=== PATIENT | male | born 1955 | race Caucasian/White ===

== ENCOUNTER 2022-07-17 11:31 | Observation (INO) | payer MEDICARE, MEDICAID, SELFPAY ==
[2022-07-17] VITALS (63 sets, daily range): BP systolic 98–133; BP diastolic 43–105; PULSE 52–100; RESP 12–26; TEMP 36.1–36.8; O2SAT 86–100
--- NOTE | 2022-07-17 11:42 | XR_ITS ---
WS: [id number] Exam: XR chest 1V portable [id number] Date/Time of Exam: 07/17/2022 11:42 AM Reason For Exam: dyspnea/cough Comparison 10/16/2016. The lungs are clear and fully expanded. Unremarkable cardiomediastinal silhouette for technique. No p leural effusions. Bony structures are intact. Extensive fusion hardware partially visualized in the l ower cervical spine. 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 XR/XR chest 1V portable [id number] IMPRESSION: 1. No acute cardiopulmonary finding.
--- NOTE | 2022-07-17 11:43 | ED_ITS ---
HPI - General Adult General: Chief complaint: Altered Mental Status Stated complaint: AMS Time Seen by Provider: 07/17/22 11:33 Source: patient Mode of arrival: EMS Limitations: altered mental status History of Present Illness: 66-year-old male with a known history of liver cirrhosis comes in with altered mental status. He is taking oxycodone every 4 hours as needed's been difficult to arouse very sedate. He appears mildly jaundice. He is nonresponsive. Onset (ago): day(s) Relieving factors: none Exacerbating factors: none Associated symptoms: Reports confusion Treatments prior to arrival: none Review of Systems General: Reports: ROS unobtainable due to mental status Neuro: Reports: confusion PFSH ED PFSH: Medical History Alcoholic cirrhosis Alcoholism Carotid artery disease carotid ultrasound in 2017 with 50-79% stenosis on left, 16-49% on right Chronic narcotic use Degenerative disk disease GERD (gastroesophageal reflux disease) History of echocardiogram 2017 normal EF, mild left ventricular hypertrophy History of Holter monitoring 2017 sinus rhythm, no correlation of symptoms with arrhythmias History of stress test 2017 Myocardial perfusion imaging revealed reversible perfusion defect of mid to distal anterior and anteroseptal mccormack suggestive of ischemia in LAD territory. The paradoxical perfusion defect of entire inferior wall improves on prone stress images likely represents attenuation artifact. No lexiscan induced EKG changes. Hypertension Hypothyroidism Intention tremor Macrocytic anemia Surgical History History of cataract surgery (~2017) History of cervical spinal surgery 2012 anterior cervical discectomy with fusion 2014 posterior cervical foraminotomy, posterior arthrodesis, and decompression laminectomy History of colonoscopy 2017 History of esophagogastroduodenoscopy (EGD) 2017 gastritis History of lumpectomy right breast, benign Family History Father CAD (coronary artery disease) Sister Hypertension Mother Colon cancer Sister Hypertension Social History Smoking and tobacco status: heavy tobacco smoker cigarettes Alcohol intake: current Alcohol intake frequency: 3 or more drinks per day Alcohol type: beer and hard liquor Substance/Drug Use: former Physical Exam HENMT: COMMON NORMALS: normocephalic, atraumatic and hearing grossly normal bilaterally HEAD & SCALP: normocephalic and atraumatic Resp: COMMON NORMALS: normal respiratory effort, No retractions, No use of accessory muscles and clear to auscultation bilaterally AUSCULTATION: clear to auscultation bilaterally Cardio: COMMON NORMALS: regular rate, regular rhythm and No murmurs present (Cardio) RATE: regular rate RHYTHM: regular rhythm GI: COMMON NORMALS: Soft to palpation and No hepatosplenomegaly present AUSCULTATION: Yes normoactive bowel sounds PALPATION: Yes Soft to palpation, No Tenderness to palpation present (GI), No Guarding due to palpation present (GI) and Yes No hepatosplenomegaly present Extremity: COMMON NORMALS: normal to inspection, capillary refill normal, no clubbing, cyanosis or edema, no calf tenderness and no pedal edema Neuro: CARA COMA SCALE: document GCS findings Cara coma scale eye opening: None Cara coma scale verbal response: Sounds Jackson coma scale motor response: Localising Jackson coma scale total score: 8 Skin: COMMON NORMALS: no rashes or lesions noted GENERAL SKIN EXAM: no rashes or lesions noted Course Vital Signs: Vital signs: Vital Signs Temperature 98.3 F 07/19/22 03:44 Pulse Rate 65 07/19/22 03:44 Respiratory Rate 18 07/19/22 03:44 Blood Pressure 103/69 07/19/22 03:44 Pulse Oximetry 96 07/19/22 00:00 Oxygen Delivery Me thod 07/19/22 03:44 Oxygen Flow Rate 2 07/19/22 03:44 [facility] - General Adult Medical Decision Making Patient presents to the emergency room with severe altered mental status difficult to arouse he was given Narcan after work-up was completed. The entire time he was here he maintain his oxygen sat good with good respiratory effort with Narcan he did wake up some. His urine tox screen also showed benzodiazepines although family member arrived later and said they last given 1 yesterday they did think he had taken a large amount of narcotics recently. He has a long history of alcohol use and has been trying to taper off which is why they have been prescribed the benzo diazepam's. His alcohol level is negative. I think he does have sedation due to his chronic narcotics use additionally think he is likely to experience withdrawal. He has a history of liver failure. Although his ammonia and other labs are not significantly abnormal at this time. Discussed with hospitalist orders written admit to ICU. Medical Records I reviewed the patient's medical records. Lab Data I reviewed the patient's lab results. 07/19/22 05:26 07/19/22 05:26 Radiology Impressions Chest X-Ray 07/17/22 11:42 IMPRESSION: 1. No acute cardiopulmonary finding. Head CT 07/17/22 12:10 IMPRESSION: 1. No evidence of intracranial hemorrhage or mass effect. 2. Mild small vessel changes. Moderate parenchymal volume loss. 3. RIGHT maxillary sinusitis. 4. No acute intracranial findings. Laboratory Results WBC 3.3 10^3/uL (4.0-10.0) L 07/17/22 11:57 RBC 2.77 10^6/uL (4.1-5.3) L 07/17/22 11:57 Hgb 10.0 g/dL (11.7-16.6) L 07/17/22 11:57 Hct 29.8 % (42.0-52.0) L 07/17/22 11:57 MCV 107.6 fl (80-94) H 07/17/22 11:57 MCH 36.1 pg (28.0-34.0) H 07/17/22 11:57 MCHC 33.6 g/dL (30.0-36.0) 07/17/22 11:57 RDW 13.6 % (12.1-15.1) 07/17/22 11:57 Plt Count 104 10^3/cmm (130-400) L 07/17/22 11:57 MPV 12.1 fL (7.4-10.4) H 07/17/22 11:57 Neut % (Auto) 69.4 % 07/17/22 11:57 Lymph % (Auto) 17.1 % 07/17/22 11:57 Morris % (Auto) 12.3 % 07/17/22 11:57 Eos % (Auto) 0.6 % 07/17/22 11:57 Baso % (Auto) 0.3 % 07/17/22 11:57 Neut # (Auto) 2.31 10^3/uL (1.8-7.7) 07/17/22 11:57 Lymph # (Auto) 0.6 10^3/uL (0.8-4.8) L 07/17/22 11:57 Morris # (Auto) 0.4 10^3/uL (0.2-0.9) 07/17/22 11:57 Eos # (Auto) 0.0 10^3/uL (0.0-0.8) 07/17/22 11:57 Baso # (Auto) 0.0 10^3/uL (0.0-0.1) 07/17/22 11:57 Nucleated RBC % (auto) 0 % 07/17/22 11:57 Nucleated RBCs # 0.0 /100WBC 07/17/22 11:57 PT 20.10 SECONDS (12.1-14.9) H 07/17/22 11:57 INR 1.67 (0.8-1.2) H 07/17/22 11:57 APTT 36.7 SECONDS (23.9-36.7) 07/17/22 11:57 Specimen Type Arterial 07/17/22 12:06 Sample Site Brachial, right 07/17/22 12:06 ABG pH 7.43 (7.35-7.45) 07/17/22 12:06 ABG pCO2 37.3 mmHg (35-45) 07/17/22 12:06 ABG pO2 91.0 mmHg (80.0-100.0) 07/17/22 12:06 ABG HCO3 24.8 mmol/L (22-26) 07/17/22 12:06 ABG O2 Saturation 98.1 07/17/22 12:06 ABG Base Excess 0.5 mmol/L (-2.0-2.0) 07/17/22 12:06 Vinicio Test Pos 07/17/22 12:06 A-a O2 Gradient 1.7 mmHg (5-10) L 07/17/22 12:06 Hematocrit 29.4 % (42-52) L 07/17/22 12:06 Hgb O2 Saturation 96.4 % (95-100) 07/17/22 12:06 Carboxyhemoglobin 1.6 %THgb (0.4-20.1) 07/17/22 12:06 Methemoglobin 0.2 % (0.4-1.5) L 07/17/22 12:06 Total Hemoglobin 9.6 g/dL (14-18) L 07/17/22 12:06 Sodium 138.0 mmol/L (131-143) 07/17/22 12:06 Potassium 3.4 mmol/L (3.5-5.0) L 07/17/22 12:06 Glucose 100.0 mg/dL (70-115) 07/17/22 12:06 Ionized Calcium 1.2 mmol/L (1.1-1.4) 07/17/22 12:06 O2 Delivery Device None 07/17/22 12:06 FiO2 21.0 % 07/17/22 12:06 Cornetist ID yorna 07/17/22 12:06 Sodium 140 mmol/L (136-145) 07/17/22 11:57 Potassium 3.9 mmol/L (3.5-5.1) 07/17/22 11:57 Chloride 104 mmol/L (98-107) 07/17/22 11:57 Carbon Dioxide 27 mmol/L (22-29) 07/17/22 11:57 Anion Gap 12.9 (5-19) 07/17/22 11:57 BUN 18 mg/dL (8-23) 07/17/22 11:57 Creatinine 0.6 mg/dL (0.7-1.2) L 07/17/22 11:57 GFR Calculation 134.8 mL/min (90-130) H 07/17/22 11:57 Glucose 106 mg/dL (65-115) 07/17/22 11:57 Calculated Osmolality 292 mOsm/kg (285-295) 07/17/22 11:57 Lactic Acid 1.6 mmol/L (0.5-2.2) 07/17/22 11:57 Calcium 9.0 mg/dL (8.5-10.5) 07/17/22 11:57 Total Bilirubin 1.9 mg/dL (0.15-1.2) H 07/17/22 11:57 AST 82 U/L (0-40) H 07/17/22 11:57 ALT 28 U/L (0-41) 07/17/22 11:57 Alkaline Phosphatase 89 U/L (40-130) 07/17/22 11:57 Ammonia 46 umol/L (16-60) 07/17/22 12:20 Creatine Kinase 428 U/L (39-308) H* 07/17/22 11:57 Total Protein 6.6 g/dL (6.6-8.7) 07/17/22 11:57 Albumin 2.6 g/dL (3.5-5.2) L 07/17/22 11:57 Globulin 4.0 g/dL (1.3-4.6) 07/17/22 11:57 Lipase 10 U/L (13-60) L 07/17/22 11:57 Vitamin B12 > 2000 pg/mL (232-1245) H 07/17/22 11:57 Folate 12.2 ng/mL (4.5-32.2) 07/17/22 11:57 Urine Color Dark yellow (Yellow) 07/17/22 13:19 Urine Appearance Cloudy (CLEAR) A 07/17/22 13:19 Urine pH 5 (5-7) 07/17/22 13:19 Ur Specific Saffell 1.020 (1.005-1.030) 07/17/22 13:19 Urine Protein 1+ (Negative) H 07/17/22 13:19 Urine Glucose (UA) Norm (Normal) 07/17/22 13:19 Urine Ketones 1+ (Negative) H 07/17/22 13:19 Urine Blood Neg (Negative) 07/17/22 13:19 Urine Nitrate Negative (Negative) 07/17/22 13:19 Urine Bilirubin 2+ (Negative) H 07/17/22 13:19 Urine Urobilinogen 4+ mg/dL (Negative) H 07/17/22 13:19 Ur Leukocyte Esterase 1+ (Negative) H 07/17/22 13:19 Urine RBC 5-10 /hpf (0-2) H 07/17/22 13:19 Urine WBC 5-10 /hpf (0-5) H 07/17/22 13:19 Ur Squamous Epith Cells 0-4 /hpf (0-5) H 07/17/22 13:19 Amorphous Sediment 1+ /hpf 07/17/22 13:19 Urine Bacteria 4+ /hpf (NONE) H 07/17/22 13:19 Urine Opiates Screen Negative ng/mL (Negative) 07/17/22 13:19 Ur Barbiturates Screen Negative ng/mL (Negative) 07/17/22 13:19 Ur Phencyclidine Scrn Negative ng/mL (Negative) 07/17/22 13:19 Ur Amphetamines Screen Negative ng/mL (Negative) 07/17/22 13:19 U Benzodiazepines Scrn Positive ng/mL (Negative) H 07/17/22 13:19 Urine Cocaine Screen Negative ng/mL (Negative) 07/17/22 13:19 U Marijuana (THC) Screen Negative ng/mL (Negative) 07/17/22 13:19 Ethyl Alcohol < 10 mg/dL (0-10) 07/17/22 11:57 Discharge Plan Discharge Patient Disposition: Admitted As Inpatient Admit Provider: Angie Vasquez Clinical Impression: Acute encephalopathy, Chronic narcotic use, Alcoholism, Macrocytic anemia, Recurrent falls, Alcoholic cirrhosis Condition: Stable Coding Level of Care Code ED Infection Prevention Practitioner for Chg Fwd Exam Detailed
--- NOTE | 2022-07-17 11:43 | W.ED.AMS ---
HPI - Altered Mental Status General: Chief Complaint: Altered Mental Status Stated Complaint: AMS Time Seen by Provider: 07/17/22 11:33 Course Vital Signs: Vital signs: Vital Signs Temperature 98.2 F 07/17/22 11:32 Pulse Rate 62 07/17/22 11:32 Respiratory Rate 16 07/17/22 11:32 Blood Pressure 120/71 07/17/22 11:32 Pulse Oximetry 100 07/17/22 11:32 Oxygen Delivery Me thod 07/17/22 11:32 Discharge Plan Discharge Condition: Stable Referrals: Maggie Jacobson DO [Primary Care Provider] - Coding Level of Care Code ED Crusher Machine Operator for Sterling Kenny
[2022-07-17 12:07] LABS: Basophils % 0.3 %; Eosinophils % 0.6 %; Hematocrit 29.8 % (42.0-52.0); Lymphocytes # 0.6 10^3/uL (0.8-4.8); Lymphocytes % 17.1 %; Mean Corpuscular HGB Conc 33.6 g/dL (30.0-36.0); Mean Corpuscular Hemoglobin 36.1 pg (28.0-34.0); Mean Corpuscular Volume 107.6 fl (80-94); Mean Platelet Volume 12.1 fL (7.4-10.4); Monocytes # 0.4 10^3/uL (0.2-0.9); Monocytes % 12.3 %; Neutrophils # 2.31 10^3/uL (1.8-7.7); Neutrophils % 69.4 %; Nucleated Red Blood Cells % 0 %; Platelet Count 104 10^3/cmm (130-400); Red Blood Count 2.77 10^6/uL (4.1-5.3); Red Cell Distribution Width 13.6 % (12.1-15.1); White Blood Count 3.3 10^3/uL (4.0-10.0)
--- NOTE | 2022-07-17 12:10 | CT_ITS ---
WS: [id number] CT HEAD TECHNIQUE: Noncontrast CT of the head obtained from the skullbase to the vertex. CLINICAL INFORMATION: AMS COMPARISON: None. DLP: 1280.[address] scans at [facility] use at least one of these dose optimization techniques: automated e xposure control; mA and/or kV adjustment per patient size (includes targeted exams where dose is matc hed to clinical indication); or iterative reconstruction. FINDINGS: No evidence of intracranial hemorrhage or mass effect. Ventricular system and basal cisterns are ken nt. Mild small vessel changes with moderate parenchymal volume loss. No extra-axial fluid collections . No evidence of mass or mass effect. Partial opacification LEFT mastoid tip. Fluid within the RIGHT maxillary sinus consistent with sinusi tis. RIGHT mastoid air cells well aerated. Normal posterior nasopharynx. CT/CT head wo con* [id number] IMPRESSION: 1. No evidence of intracranial hemorrhage or mass effect. 2. Mild small vessel changes. Moderate parenchymal volume loss. 3. RIGHT maxillary sinusitis. 4. No acute intracranial findings.
[2022-07-17 12:18] LABS: ABG PCO2 37.3 mmHg (35-45); ABG PH Result 7.43 (7.35-7.45); Alveolar-Arterial Oxygen Gradi 1.7 mmHg (5-10); Arterial Blood Gas Hematocrit 29.4 % (42-52); Base Excess ABG 0.5 mmol/L (-2.0-2.0); Blood Gas Allen Test Pos; Blood Gas Sample Site Brachial, right; Blood Gas Sample Type Arterial; Carboxyhemoglobin 1.6 %THgb (0.4-20.1); HCO3 ABG 24.8 mmol/L (22-26); HGB O2 Sat 96.4 % (95-100); Ionized Calcium Level - ABG 1.2 mmol/L (1.1-1.4); Methemoglobin 0.2 % (0.4-1.5); Oxygen Saturation ABG 98.1; Potassium Level - ABG 3.4 mmol/L (3.5-5.0); Total Hemoglobin 9.6 g/dL (14-18)
[2022-07-17 12:18] LABS: INR 1.67 (0.8-1.2)
[2022-07-17 12:19] LABS: Partial Thromboplastin Time 36.7 SECONDS (23.9-36.7)
[2022-07-17 12:25] LABS: Lactic Sepsis W/Reflex 1.6 mmol/L (0.5-2.2)
[2022-07-17 12:33] LABS: Alanine Aminotransferase 28 U/L (0-41); Albumin Level 2.6 g/dL (3.5-5.2); Alkaline Phosphatase 89 U/L (40-130); Anion Gap 12.9 (5-19); Aspartate Amino Transferase 82 U/L (0-40); Blood Urea Nitrogen 18 mg/dL (8-23); Carbon Dioxide 27 mmol/L (22-29); Chloride 104 mmol/L (98-107); Glomerular Filtration Rate 134.8 mL/min (90-130); Glucose 106 mg/dL (65-115); Lipase 10 U/L (13-60); Osmolality Calculated 292 mOsm/kg (285-295); Potassium 3.9 mmol/L (3.5-5.1); Sodium 140 mmol/L (136-145); Total Bilirubin 1.9 mg/dL (0.15-1.2); Total Protein 6.6 g/dL (6.6-8.7)
[2022-07-17 12:35] LABS: Creatine Phosphokinase 428 U/L (39-308)
[2022-07-17 12:55] LABS: Ammonia 46 umol/L (16-60)
--- NOTE | 2022-07-17 13:35 | PC.PHAR ---
pt unable to verify medications due to ams-medications entered are meds the pharmacy has filled recently and med bottles the pt brought in-rx filled 07/02/22 90d/s for duloxetine 60mg take 2 caps daily-pt also had empty bottle of 30mg daily filled 03/27/22 90d/s-rx filled 04/09/22 90d/s for levothyroxine 150mcg daily pt also had rx bottle dated 06/20/2020 for 137mcg daily-rx filled 05/28/22 90d/s topiramate 50mg bid pt also had a rx bottle dated 05/02/21 25mg bid-notes are made in the pharmacy comments
[2022-07-17 13:37] LABS: Bilirubin Urine 2+ (Negative); Blood Urine Neg (Negative); Glucose Urine UA Norm (Normal); Ketones Urine 1+ (Negative); Nitrate Urine Negative (Negative); Protein Urine 1+ (Negative); Urine Appearance Cloudy (CLEAR); Urine Color Dark Yellow (Yellow); pH Urine 5 (5-7)
[2022-07-17 13:38] LABS: Add Urine Microscopic? YES; Leukocyte Esterase Urine 1+ (Negative); Urobilinogen Urine 4+ mg/dL (Negative)
[2022-07-17 13:44] LABS: Squamous Epithelial Cell Urine 0-4 /hpf (0-5)
[2022-07-17 13:45] LABS: Add Urine Culture? Yes; Amorphous Sediment Urine 1+ /hpf; Bacteria Urine 4+ /hpf
[2022-07-17 13:56] LABS: Amphetamines Screen Urine Negative (Negative); Barbiturates Screen Urine Negative (Negative); Benzodiazepines Screen Urine Positive (Negative); Cocaine Screen Urine Negative (Negative); Opiate Screen Urine Negative (Negative); PCP Screen Urine Negative (Negative); THC Screen Urine Negative (Negative)
--- NOTE | 2022-07-17 14:05 | PC.NURSE ---
PT ABLE TO VERBALIZE NAME AFTER SECOND DOSE OF NALOXONE.
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
[2022-07-17 14:45] LABS: Alcohol Level < 10 mg/dL (0-10)
[2022-07-17] MEDS: cefTRIAXone 1,000 MG in sodium chloride 0.9% (plus) 50 ML 100 MG IV (14:49)
[2022-07-17] MEDS: sodium chloride 0.9% 1,000 ML 999 ML IV ×2 (14:50→16:08)
[2022-07-17] MEDS: sodium chloride 0.9% 1,000 ML 150 ML IV (16:15)
--- NOTE | 2022-07-17 17:02 | ECG_ITS ---
[facility] Test Date: 2022-07-17 Pat Name: Mike Wilkerson Department: Room: [facility] Gender: Male [place]: : 1955 Requested By: Angie Vasquez Order Number: [id number] Reading MD: Virgilio Munoz Measurements Intervals [place] Rate: 72 P: 75 FL: 183 QRS: 43 QRSD: 82 T: 90 QT: 389 QTc: 426 Interpretive Statements SINUS RHYTHM NONSPECIFIC T-WAVE ABNORMALITY Compared to ECG 08/15/2017 17:42:09 T-wave abnormality now present Electronically Signed On 07-17-2022 18:07:45 WASHER ENGINEER by Virgilio Munoz [email or web address]
--- NOTE | 2022-07-17 17:42 | USCV_ITS ---
Mike Wilkerson Age: 66 Gender: M : 1955 Exam Date: 07/17/2022 18:14 Ordering Phys: Angie Vasquez MD Technologist: SHI [place] [facility] [place]ication: LLE edema. Patient is unresponsive in ICU-5 HISTORY: LLE edema. Patient is unresponsive in ICU-5 PROCEDURES: Venous duplex imaging was performed in only the left lower extremity. The following venous structures were evaluated: common femoral vein, profunda vein, proximal portion of the greater saphenous vein, superficial femoral vein, and the popliteal vein. In addition, the posterior tibial veins were evaluated. FINDINGS: Normal 2-D Doppler and augmentation and compressibility throughout the lower extremity venous structures. Additional imaging through the proximal calf veins also reveals no thrombus. Limited evaluation of the greater saphenous vein is patent with no thrombus.. CONCLUSIONS No DVT left lower extremity. Dr. Sonali Whiting DO (Electronically Signed) Final Date: 18 July 2022 07:47 S
[2022-07-17] MEDS: magnesium sulfate premix 2 GM/50 ML PIGGYBACK IV (17:44)
[2022-07-17] MEDS: folic acid 1 MG, multivitamin inj 10 ML, thiamine 100 MG in sodium chloride 0.9% 1,000 ML 250 MG IV (17:53)
[2022-07-17] MEDS: pantoprazole 40 mg SDV IVP (18:40)
[2022-07-17] MEDS: heparin 5,000 unit/mL INJ 1 mL 5000 UNIT SUBCUT (18:42)
[2022-07-17 18:55] LABS: Folate Level 12.2 ng/mL (4.5-32.2)
[2022-07-17 19:15] LABS: Vitamin B12 > 2000 pg/mL (232-1245)
--- NOTE | 2022-07-17 21:15 | PC.NURSE ---
Bladder scan done at 1930 with result of 375 and then 879. I and O catheterization done as ordered with 400 dark sudha urine out. Patient tolerated procedure well.
[2022-07-17 21:51] LABS: Glucose Point of Care 86 mg/dL (70-110)
[2022-07-17] MEDS: sodium chlor 0.9% + KCl 20 mEq 20 MEQ/1,000 ML BAG 75 MEQ IV (22:11)
[2022-07-18] VITALS (129 sets, daily range): BP systolic 90–151; BP diastolic 58–108; PULSE 71–787; RESP 13–32; TEMP 36.7–38; O2SAT 73–100
[2022-07-18 05:49] LABS: Basophils % 0.2 %; Eosinophils % 0.2 %; Hematocrit 27.3 % (42.0-52.0); Hemoglobin 9.2 g/dL (11.7-16.6); Lymphocytes # 0.7 10^3/uL (0.8-4.8); Lymphocytes % 11.4 %; Mean Corpuscular HGB Conc 33.7 g/dL (30.0-36.0); Mean Corpuscular Hemoglobin 35.9 pg (28.0-34.0); Mean Corpuscular Volume 106.6 fl (80-94); Mean Platelet Volume 12.2 fL (7.4-10.4); Monocytes # 0.5 10^3/uL (0.2-0.9); Monocytes % 8.8 %; Neutrophils # 4.87 10^3/uL (1.8-7.7); Neutrophils % 79.1 %; Nucleated Red Blood Cells % 0 %; Platelet Count 125 10^3/cmm (130-400); Red Blood Count 2.56 10^6/uL (4.1-5.3); Red Cell Distribution Width 13.7 % (12.1-15.1); White Blood Count 6.2 10^3/uL (4.0-10.0)
[2022-07-18 05:57] LABS: INR 1.76 (0.8-1.2)
[2022-07-18] MEDS: heparin 5,000 unit/mL INJ 1 mL 5000 UNIT SUBCUT ×2 (06:02→17:36)
[2022-07-18 06:11] LABS: Ammonia 60 umol/L (16-60)
[2022-07-18 06:51] LABS: Alanine Aminotransferase 27 U/L (0-41); Albumin Level 2.3 g/dL (3.5-5.2); Alkaline Phosphatase 78 U/L (40-130); Aspartate Amino Transferase 86 U/L (0-40); Blood Urea Nitrogen 17 mg/dL (8-23); Calcium 8.2 mg/dL (8.5-10.5); Carbon Dioxide 22 mmol/L (22-29); Chloride 107 mmol/L (98-107); Creatine Phosphokinase 305 U/L (39-308); Globulin 3.4 g/dL (1.3-4.6); Glomerular Filtration Rate 134.8 mL/min (90-130); Glucose 73 mg/dL (65-115); Iron 45 ug/dL (59-158); Magnesium 1.6 mg/dL (1.7-2.3); Osmolality Calculated 288 mOsm/kg (285-295); Percent Saturation 64.2 % (20-50); Phosphorus 3.3 mg/dL (2.5-4.5); Sodium 139 mmol/L (136-145); Thyroid Stimulating Hormone 2.75 uIU/mL (0.27-4.20); Total Bilirubin 1.6 mg/dL (0.15-1.2); Total Iron Binding Capacity 70 mcg/dl; Total Protein 5.7 g/dL (6.6-8.7); Unsaturated Iron Binding 25 ug/dL (112-347)
[2022-07-18 06:53] LABS: Glucose Point of Care 88 mg/dL (70-110)
[2022-07-18 08:55] LABS: Glucose Point of Care 72 mg/dL (70-110)
[2022-07-18] MEDS: acetaminophen 500 mg Tablet PO (09:25)
[2022-07-18] MEDS: folic acid 1 mg Tablet PO (09:25)
[2022-07-18] MEDS: multivitamin therapeutic Tablet 1 TAB PO (09:25)
[2022-07-18] MEDS: thiamine 100 mg Tablet PO (09:25)
[2022-07-18] MEDS: pantoprazole 40 mg SDV IVP (09:25)
[2022-07-18] MEDS: sodium chloride 0.9% 1,000 ML 75 ML IV (10:40)
--- NOTE | 2022-07-18 11:34 | PC.CHAP ---
Pastoral Care Encounter/Spiritual Assessment Type of Contact [] Declined lead developer visit [] Patient/Family/Request visit [] Outpatient visit [] Follow-up visit [] Physician referral [] Code/Alert [x] Routine visit [] Staff referral [] Actively dying [x] Patient sleeping [] Family support [] [] Out of room [] Palliative care [] [] Receiving care in room [] Pre-surgical visit [] Trauma [] Long length of stay [x] ICU visit [] Other: Relational/Emotional Strength [] Patient feels connected with others/family/visitors/staff [] Distress [] Loneliness/isolation [] Abandonment Spirituality of Patient [] Person of Carlene [] Attends Sabianist of their Carlene [] Believes in Prayer [] Reads Bible or Bahai materials [] There are Spiritual issues to be addressed Nurse Case Management Interventions [x] Prayer [] Active listening [] Non-anxious presence [] Spiritual/emotional support [] Crisis/trauma care [] Spiritual counseling [] Bereavement support [] Provided bereavement packet [] Provided Bible/devotional materials [] Provided toy/stuffed animal, coloring book to patient or family member [] Provided Communion [] Anointing/[place] [] Salvation [x] Completed spiritual assessment [] Other: Impact on Illness or Injury [] Angry [] Fearful [] Anxious [] Often cries [] Exhaustion [] Unable to work [] Unable to attend orthodox [] Unable to walk/stand [] Unable to read [] Unable to drive [] Unable to eat/drink [] Unable to sleep [] Unable to be with family [] Patient intubated [] Other: Summary Time spent with patient
[2022-07-18 12:20] LABS: Glucose Point of Care 86 mg/dL (70-110)
--- NOTE | 2022-07-18 12:39 | PM.PN ---
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 Patient is noncompliant no active complaints He was examined in front of ICU nurse Vitals/I&O/Wt Last Vital Signs Temp 98.9 F 07/18/22 12:35 Pulse 79 07/18/22 12:35 Resp 18 07/18/22 12:35 BP 113/78 07/18/22 12:35 Pulse Ox 98 07/18/22 12:35 O2 Del Method 07/18/22 12:35 O2 Flow Rate 2 07/18/22 05:59 07/17/22 07/18/22 07/18/22 22:59 06:59 14:59 Intake Total 4111.2 / 4111.2 936.25 / 936.25 Output Total 400 / 400 125 / 525 Balance 3711.2 / 3711.2 -125 / 3586.2 936.25 / 936.25 Weight last 48 hrs Weight 73.482 kg Physical Exam Narrative: Patient is tremulous Able to follow commands Asymmetrical pupil Looks dehydrated Malnourished Multiple petechiae bruises all over his extremities Stage II ulcer right greater trochanteric area Right elbow blister has ruptured S1, S2 I do not see any focal deficits Concentrated urine in the bag Data : 07/18/22 04:45 07/18/22 04:38 Micro: Microbiology 07/17/22 12:22 Blood Culture - Preliminary Blood NEGATIVE TO DATE 07/17/22 12:20 Blood Culture - Preliminary Blood NEGATIVE TO DATE 07/17/22 13:19 Urine Culture - Preliminary Urine,Clean Catch Strep species, gamma-hemolytic A&P Assessment and plan (1) Alcoholism: (2) Degenerative disk disease: (3) Chronic narcotic use: (4) GERD (gastroesophageal reflux disease): (5) Alcoholic cirrhosis: Qualifiers: Ascites presence: with ascites Qualified Code(s): K70.31 - Alcoholic cirrhosis of liver with ascites (6) Macrocytic anemia: (7) Acute encephalopathy: (8) Alcohol withdrawal: Qualifiers: Complication of substance-induced condition: with delirium Qualified Code(s): F10.931 - Alcohol use, unspecified with withdrawal delirium (9) Wernicke-Korsakoff syndrome (alcoholic): (10) Recurrent falls: Plan Rhabdomyolysis: Continue IV fluids Patient is dehydrated and malnourished Alcohol-related ketosis Continue thiamine, IV fluids Warnicke Korsakoff: Patient is denying events that are listed in H&P however has multiple bruises and petechiae all over his extremities He is agreeing to the fact of going to a correction for now 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
[2022-07-18] MEDS: cefTRIAXone 1,000 MG in sodium chloride 0.9% (plus) 50 ML 100 MG IV (13:42)
[2022-07-18 16:54] LABS: Glucose Point of Care 110 mg/dL (70-110)
--- NOTE | 2022-07-18 19:24 | PC.NURSE ---
PT HAS HAD AN UNEVENTFUL SHIFT. PT HAS BECOME MORE A/O THROUGHOUT MY SHIFT. PT HAS TOLERATED FOOD WELL FOR THIS NURSE AND IS TAKING HIS PILLS WHOLE. HE IS ABLE TO ANSWER HIS NAME, , AND WHERE HE IS AT. PTS SISTER'S HAVE BEEN AT BEDSIDE MOST OF THE DAY. THEY ARE VERY PLEASANT. DR MARIO TO CALL AND SPEAK WITH FAMILY. REPORT WAS GIVEN TO ICU NURSE WELL MED SURG NURSE. ALL QUESTIONS ANSWERED. CARE BEING TURNED OVER TO ROSEY COLEY.
[2022-07-18] MEDS: tizanidine 4 mg Tablet 8 MG PO (20:58)
[2022-07-18] MEDS: gabapentin 300 mg Capsule 600 MG PO (20:58)
[2022-07-18 21:13] LABS: Glucose Point of Care 113 mg/dL (70-110)
[2022-07-19] VITALS (8 sets, daily range): BP systolic 101–123; BP diastolic 51–72; PULSE 49–78; RESP 13–18; TEMP 36.3–37.8; O2SAT 95–98
[2022-07-19] MEDS: sodium chloride 0.9% 1,000 ML 75 ML IV ×2 (00:26→03:53)
[2022-07-19] MEDS: heparin 5,000 unit/mL INJ 1 mL 5000 UNIT SUBCUT ×2 (05:20→19:27)
[2022-07-19 05:47] LABS: Basophils % 0.1 %; Eosinophils % 0.1 %; Hematocrit 24.9 % (42.0-52.0); Hemoglobin 8.2 g/dL (11.7-16.6); Lymphocytes # 0.8 10^3/uL (0.8-4.8); Lymphocytes % 11.3 %; Mean Corpuscular HGB Conc 32.9 g/dL (30.0-36.0); Mean Corpuscular Hemoglobin 35.8 pg (28.0-34.0); Mean Corpuscular Volume 108.7 fl (80-94); Mean Platelet Volume 11.8 fL (7.4-10.4); Monocytes # 0.4 10^3/uL (0.2-0.9); Monocytes % 5.9 %; Neutrophils # 5.53 10^3/uL (1.8-7.7); Neutrophils % 82.2 %; Nucleated Red Blood Cells % 0 %; Platelet Count 98 10^3/cmm (130-400); Red Blood Count 2.29 10^6/uL (4.1-5.3); Red Cell Distribution Width 14.5 % (12.1-15.1); White Blood Count 6.7 10^3/uL (4.0-10.0)
[2022-07-19 05:52] LABS: Anion Gap 11.7 (5-19); Blood Urea Nitrogen 16 mg/dL (8-23); Calcium 8.2 mg/dL (8.5-10.5); Carbon Dioxide 23 mmol/L (22-29); Chloride 110 mmol/L (98-107); Glomerular Filtration Rate 134.8 mL/min (90-130); Glucose 113 mg/dL (65-115); Osmolality Calculated 294 mOsm/kg (285-295); Potassium 3.7 mmol/L (3.5-5.1); Sodium 141 mmol/L (136-145)
[2022-07-19 06:55] LABS: Glucose Point of Care 110 mg/dL (70-110)
--- NOTE | 2022-07-19 10:44 | P.PN_ITS ---
Subjective Subjective: Patient is awake and alert Agreeable to go to rehab for a while Did discuss with the patient and his family that in case he gets worse option is to go with palliative versus hospice care Patient is motivated to work with physical therapy at the [place] [facility] and get better Family is in agreement Vitals/I&O/Wt Last Vital Signs Temp 98.3 F 07/19/22 03:44 Pulse 78 07/19/22 08:00 Resp 15 07/19/22 08:00 BP 109/72 07/19/22 08:00 Pulse Ox 98 07/19/22 08:00 O2 Del Method 07/19/22 08:00 O2 Flow Rate 2 07/19/22 03:44 07/18/22 07/19/22 07/19/22 22:59 06:59 14:59 Intake Total 360 / 1466.25 1258.75 / 2725.00 Output Total 200 / 200 175 / 375 Balance 160 / 1266.25 1083.75 / 2350.00 Weight last 48 hrs Weight 73.482 kg Weight 73.482 kg Physical Exam Narrative: Patient is awake and alert Very weak and lethargic Asterixis positive Abdomen soft and distended nontender Lower extremity edema positive Protein malnourished Muscle mass loss Awake and alert Able to comprehend Hemodynamically stable Currently on room air Blister right elbow ruptured Petechial lower extremity Data 07/19/22 05:26 07/19/22 05:26 Micro: Microbiology 07/17/22 12:22 Blood Culture - Preliminary Blood NEGATIVE TO DATE 07/17/22 12:20 Blood Culture - Preliminary Blood NEGATIVE TO DATE 07/17/22 13:19 Urine Culture - Preliminary Urine,Clean Catch Strep species, gamma-hemolytic A&P Assessment and plan (1) Alcoholism: (2) Degenerative disk disease: (3) Chronic narcotic use: (4) GERD (gastroesophageal reflux disease): (5) Alcoholic cirrhosis: (6) Macrocytic anemia: (7) Acute encephalopathy: (8) Alcohol withdrawal: Qualifiers: Complication of substance-induced condition: with delirium Qualified Code(s): F10.931 - Alcohol use, unspecified with withdrawal delirium (9) Wernicke-Korsakoff syndrome (alcoholic): (10) Recurrent falls: Plan Alcohol-related deconditioning Alcohol-related neuropathy Patient is agreeable to go [facility] [facility] Recommended palliative care as well All questions were answered to their satisfaction Family meeting conducted today Hemoglobin stable Continue thiamine and folic acid Patient has ascites Nontender abdomen Afebrile For albumin Moderate protein calorie malnourishment TSH, B12 normal For his UTI continue antibiotics Awaiting placement DNR/DNI Attestations Medical Necessity Statement*: Awaiting placement Time Spent in Patient Care: 30 Coding Level of Care Code Acute Wet Char Conveyor Tender for g Fwd Diagnoses Alcoholism F10.20 Degenerative disk disease Chronic narcotic use F11.90 GERD (gastroesophageal reflux disease) K21.9 Alcoholic cirrhosis K70.30 Macrocytic anemia D53.9 Acute encephalopathy G93.40 Alcohol withdrawal F10.931 Complication of substance-induced condition: with delirium Wernicke-Korsakoff syndrome (alcoholic) F10.96 Recurrent falls R29.6
[2022-07-19] MEDS: tizanidine 4 mg Tablet 8 MG PO (10:59)
[2022-07-19] MEDS: thiamine 100 mg Tablet PO (11:00)
[2022-07-19] MEDS: duloxetine 60 mg Capsule 120 MG PO (11:00)
[2022-07-19] MEDS: topiramate 25 mg Tablet 50 MG PO ×2 (11:00→18:05)
[2022-07-19] MEDS: multivitamin therapeutic Tablet 1 TAB PO (11:01)
[2022-07-19] MEDS: folic acid 1 mg Tablet PO (11:01)
[2022-07-19] MEDS: amlodipine 5 mg Tablet PO (11:02)
[2022-07-19] MEDS: gabapentin 300 mg Capsule 600 MG PO (11:02)
[2022-07-19] MEDS: levothyroxine 150 mcg Tablet PO (11:03)
[2022-07-19] MEDS: pantoprazole 40 mg SDV IVP (11:03)
[2022-07-19 11:33] LABS: Glucose Point of Care 112 mg/dL (70-110)
[2022-07-19] MEDS: cefTRIAXone 1,000 MG in sodium chloride 0.9% (plus) 50 ML 100 MG IV (16:08)
[2022-07-19 18:35] LABS: Glucose Point of Care 119 mg/dL (70-110)
[2022-07-20] VITALS: BP 104/71; PULSE 64; RESP 16; TEMP 36.3; O2SAT 92
[2022-07-20 01:30] LABS: Glucose Point of Care 105 mg/dL (70-110)
[2022-07-20 04:00] VITALS: BP 114/62; PULSE 66; RESP 16; TEMP 36.5; O2SAT 98
[2022-07-20] MEDS: sodium chloride 0.9% 1,000 ML 75 ML IV (04:02)
[2022-07-20] MEDS: heparin 5,000 unit/mL INJ 1 mL 5000 UNIT SUBCUT (05:29)
[2022-07-20 06:38] LABS: Anion Gap 11.3 (5-19); Blood Urea Nitrogen 17 mg/dL (8-23); Calcium 8.4 mg/dL (8.5-10.5); Carbon Dioxide 22 mmol/L (22-29); Chloride 104 mmol/L (98-107); Glomerular Filtration Rate 134.8 mL/min (90-130); Glucose 75 mg/dL (65-115); Osmolality Calculated 278 mOsm/kg (285-295); Potassium 3.3 mmol/L (3.5-5.1); Sodium 134 mmol/L (136-145)
[2022-07-20 07:01] LABS: Glucose Point of Care 104 mg/dL (70-110)
[2022-07-20 07:39] VITALS: BP 110/69; PULSE 69; RESP 15; TEMP 36.5; O2SAT 100
[2022-07-20 08:00] VITALS: BP 104/67; PULSE 56; PULSE 80; RESP 15; TEMP 36.6; O2SAT 96
[2022-07-20] MEDS: multivitamin therapeutic Tablet 1 TAB PO (09:30)
[2022-07-20] MEDS: duloxetine 60 mg Capsule 120 MG PO (09:56)
[2022-07-20] MEDS: levothyroxine 150 mcg Tablet PO (09:56)
[2022-07-20] MEDS: pantoprazole 40 mg SDV IVP (09:57)
[2022-07-20] MEDS: topiramate 25 mg Tablet 50 MG PO (09:57)
[2022-07-20] MEDS: folic acid 1 mg Tablet PO (09:57)
[2022-07-20] MEDS: thiamine 100 mg Tablet PO (09:57)
[2022-07-20] MEDS: amlodipine 5 mg Tablet PO (09:57)
--- NOTE | 2022-07-20 10:04 | PM.DCS ---
Discharge Providers Date of Admission: 07/17/22 14:55 Date of Discharge: July 20, 2022 Attending Provider at Admission: Angie Vasquez MD Attending Provider at Discharge: Mita Astudillo MD Primary Care Provider: Maggie Jacobson DO Diagnoses at Discharge Discharge Diagnosis (1) Alcoholism: Status: Chronic (2) Degenerative disk disease: Status: Chronic (3) Chronic narcotic use: Status: Chronic (4) GERD (gastroesophageal reflux disease): Status: Chronic (5) Alcoholic cirrhosis: Status: Chronic (6) Macrocytic anemia: Status: Chronic (7) Acute encephalopathy: Status: Acute (8) Alcohol withdrawal: Status: Acute Qualifiers: Complication of substance-induced condition: with delirium Qualified Code(s): F10.931 - Alcohol use, unspecified with withdrawal delirium (9) Wernicke-Korsakoff syndrome (alcoholic): Status: Acute (10) Recurrent falls: Status: Acute Reason for Visit Reason for Visit: AMS Hospital Course Hospital Course 66-year-old male who was admitted to the hospital for management of alcohol-related complication. He has been having recurrent falls at home, he cannot take care of himself, he lives with 2 dogs, family checked on him and found out that he was unresponsive, in the ER he was diagnosed with severe dehydration, he does have history of alcohol-related liver disease, patient and family both in agreement for fpc placement for now, if he does well at the rehab patient is in family might not pursue comfort care but for now they would like to watch him for the progress in case of further worsening they will opt for palliative/hospice care. Considering severe malnourishment alcohol-related complications I do believe he is not going to do well and it is unsafe for him to return home. Physical Exam Narrative: Alert Oriented to time place and person Able to answer simple questions Mild tremors noted S1, S2 Abdomen distended nontender Lower extremity edema positive Discharge Data Studies Completed and Pending Completed Studies During Hospitalization Category Date Time Status CT head wo con* 20937 Stat Cat Scan 07/17/22 12:10 Completed XR chest 1V portable [id number] Stat Exams 07/17/22 11:42 Completed US venous duplex lower extremity LT [CV venous duplex Ultrasound 07/17/22 17:42 [place] [id number]] Routine Pending at discharge Category Date Time Status Blood Culture Stat Lab 07/17/22 12:22 Results COVID [SARS Covid-2 Antigen] Routine Lab 07/20/22 09:49 Uncollected Immunochemical Fecal OCB Routine Lab 07/17/22 17:28 Uncollected Urine Culture Routine Lab 07/19/22 16:35 Received Radiology Impressions Chest X-Ray 07/17/22 11:42 IMPRESSION: 1. No acute cardiopulmonary finding. Head CT 07/17/22 12:10 IMPRESSION: 1. No evidence of intracranial hemorrhage or mass effect. 2. Mild small vessel changes. Moderate parenchymal volume loss. 3. RIGHT maxillary sinusitis. 4. No acute intracranial findings. Laboratory Results WBC 6.7 10^3/uL (4.0-10.0) 07/19/22 05:26 RBC 2.29 10^6/uL (4.1-5.3) L 07/19/22 05:26 Hgb 8.2 g/dL (11.7-16.6) L 07/19/22 05:26 Hct 24.9 % (42.0-52.0) L 07/19/22 05:26 MCV 108.7 fl (80-94) H 07/19/22 05:26 MCH 35.8 pg (28.0-34.0) H 07/19/22 05:26 MCHC 32.9 g/dL (30.0-36.0) 07/19/22 05:26 RDW 14.5 % (12.1-15.1) 07/19/22 05:26 Plt Count 98 10^3/cmm (130-400) L 07/19/22 05:26 MPV 11.8 fL (7.4-10.4) H 07/19/22 05:26 Neut % (Auto) 82.2 % 07/19/22 05:26 Lymph % (Auto) 11.3 % 07/19/22 05:26 [place] % (Auto) 5.9 % 07/19/22 05:26 Eos % (Auto) 0.1 % 07/19/22 05:26 Baso % (Auto) 0.1 % 07/19/22 05:26 Neut # (Auto) 5.53 10^3/uL (1.8-7.7) 07/19/22 05:26 Lymph # (Auto) 0.8 10^3/uL (0.8-4.8) 07/19/22 05:26 [place] # (Auto) 0.4 10^3/uL (0.2-0.9) 07/19/22 05:26 Eos # (Auto) 0.0 10^3/uL (0.0-0.8) 07/19/22 05:26 Baso # (Auto) 0.0 10^3/uL (0.0-0.1) 07/19/22 05:26 Nucleated RBC % (auto) 0 % 07/19/22 05:26 Nucleated RBCs # 0.0 /100WBC 07/19/22 05:26 PT 20.80 SECONDS (12.1-14.9) H 07/18/22 04:45 INR 1.76 (0.8-1.2) H 07/18/22 04:45 APTT 36.7 SECONDS (23.9-36.7) 07/17/22 11:57 Specimen Type Arterial 07/17/22 12:06 Sample Site Brachial, right 07/17/22 12:06 ABG pH 7.43 (7.35-7.45) 07/17/22 12:06 ABG pCO2 37.3 mmHg (35-45) 07/17/22 12:06 ABG pO2 91.0 mmHg (80.0-100.0) 07/17/22 12:06 ABG HCO3 24.8 mmol/L (22-26) 07/17/22 12:06 ABG O2 Saturation 98.1 07/17/22 12:06 ABG Base Excess 0.5 mmol/L (-2.0-2.0) 07/17/22 12:06 Vinicio Test Pos 07/17/22 12:06 A-a O2 Gradient 1.7 mmHg (5-10) L 07/17/22 12:06 Hematocrit 29.4 % (42-52) L 07/17/22 12:06 Hgb O2 Saturation 96.4 % (95-100) 07/17/22 12:06 Carboxyhemoglobin 1.6 %THgb (0.4-20.1) 07/17/22 12:06 Methemoglobin 0.2 % (0.4-1.5) L 07/17/22 12:06 Total Hemoglobin 9.6 g/dL (14-18) L 07/17/22 12:06 Sodium 138.0 mmol/L (131-143) 07/17/22 12:06 Potassium 3.4 mmol/L (3.5-5.0) L 07/17/22 12:06 Glucose 100.0 mg/dL (70-115) 07/17/22 12:06 Ionized Calcium 1.2 mmol/L (1.1-1.4) 07/17/22 12:06 O2 Delivery Device None 07/17/22 12:06 FiO2 21.0 % 07/17/22 12:06 Nipple Machine Operator ID yorna 07/17/22 12:06 Sodium 134 mmol/L (136-145) L 07/20/22 05:33 Potassium 3.3 mmol/L (3.5-5.1) L 07/20/22 05:33 Chloride 104 mmol/L (98-107) 07/20/22 05:33 Carbon Dioxide 22 mmol/L (22-29) 07/20/22 05:33 Anion Gap 11.3 (5-19) 07/20/22 05:33 BUN 17 mg/dL (8-23) 07/20/22 05:33 Creatinine 0.6 mg/dL (0.7-1.2) L 07/20/22 05:33 GFR Calculation 134.8 mL/min (90-130) H 07/20/22 05:33 Glucose 75 mg/dL (65-115) 07/20/22 05:33 POC Glucose 104 mg/dL (70-110) 07/20/22 06:46 Calculated Osmolality 278 mOsm/kg (285-295) L 07/20/22 05:33 Lactic Acid 1.6 mmol/L (0.5-2.2) 07/17/22 11:57 Calcium 8.4 mg/dL (8.5-10.5) L 07/20/22 05:33 Phosphorus 3.3 mg/dL (2.5-4.5) 07/18/22 04:38 Magnesium 1.6 mg/dL (1.7-2.3) L 07/18/22 04:38 Iron 45 ug/dL (59-158) L 07/18/22 04:38 TIBC 70 mcg/dl 07/18/22 04:38 % Saturation 64.2 % (20-50) H 07/18/22 04:38 Unsat Iron Binding 25 ug/dL (112-347) L 07/18/22 04:38 Total Bilirubin 1.6 mg/dL (0.15-1.2) H 07/18/22 04:38 AST 86 U/L (0-40) H 07/18/22 04:38 ALT 27 U/L (0-41) 07/18/22 04:38 Alkaline Phosphatase 78 U/L (40-130) 07/18/22 04:38 Ammonia 60 umol/L (16-60) 07/18/22 04:45 Creatine Kinase 305 U/L (39-308) 07/18/22 04:38 Total Protein 5.7 g/dL (6.6-8.7) L 07/18/22 04:38 Albumin 2.3 g/dL (3.5-5.2) L 07/18/22 04:38 Globulin 3.4 g/dL (1.3-4.6) 07/18/22 04:38 Lipase 10 U/L (13-60) L 07/17/22 11:57 Vitamin B12 > 2000 pg/mL (232-1245) H 07/17/22 11:57 Folate 12.2 ng/mL (4.5-32.2) 07/17/22 11:57 TSH 2.75 uIU/mL (0.27-4.20) 07/18/22 04:38 Urine Color Dark yellow (Yellow) 07/17/22 13:19 Urine Appearance Cloudy (CLEAR) A 07/17/22 13:19 Urine pH 5 (5-7) 07/17/22 13:19 Ur Specific [place] 1.020 (1.005-1.030) 07/17/22 13:19 Urine Protein 1+ (Negative) H 07/17/22 13:19 Urine Glucose (UA) Norm (Normal) 07/17/22 13:19 Urine Ketones 1+ (Negative) H 07/17/22 13:19 Urine Blood Neg (Negative) 07/17/22 13:19 Urine Nitrate Negative (Negative) 07/17/22 13:19 Urine Bilirubin 2+ (Negative) H 07/17/22 13:19 Urine Urobilinogen 4+ mg/dL (Negative) H 07/17/22 13:19 Ur Leukocyte Esterase 1+ (Negative) H 07/17/22 13:19 Urine RBC 5-10 /hpf (0-2) H 07/17/22 13:19 Urine WBC 5-10 /hpf (0-5) H 07/17/22 13:19 Ur Squamous Epith Cells 0-4 /hpf (0-5) H 07/17/22 13:19 Amorphous Sediment 1+ /hpf 07/17/22 13:19 Urine Bacteria 4+ /hpf (NONE) H 07/17/22 13:19 Urine Opiates Screen Negative ng/mL (Negative) 07/17/22 13:19 Ur Barbiturates Screen Negative ng/mL (Negative) 07/17/22 13:19 Ur Phencyclidine Scrn Negative ng/mL (Negative) 07/17/22 13:19 Ur Amphetamines Screen Negative ng/mL (Negative) 07/17/22 13:19 U Benzodiazepines Scrn Positive ng/mL (Negative) H 07/17/22 13:19 Urine Cocaine Screen Negative ng/mL (Negative) 07/17/22 13:19 U Marijuana (THC) Screen Negative ng/mL (Negative) 07/17/22 13:19 Ethyl Alcohol < 10 mg/dL (0-10) 07/17/22 11:57 Vitals Last Vital Signs Temp 97.7 F 07/20/22 07:39 Pulse 56 L 07/20/22 08:00 Resp 15 07/20/22 07:39 BP 110/69 07/20/22 07:39 Pulse Ox 96 07/20/22 08:00 O2 Del Method 07/20/22 08:00 O2 Flow Rate 2 07/20/22 08:00 Discharge Plan Discharge Patient Disposition: Xfer SNF Condition: Stable Prescriptions: New Lasix 20 mg tablet 20 mg PO DAILY Qty: 30 0RF spironolactone 25 mg tablet 25 mg PO DAILY Qty: 30 0RF potassium chloride 10 mEq tablet extended release 10 meq PO DAILY Qty: 60 0RF thiamine HCl (vitamin B1) 100 mg tablet 100 mg PO DAILY Qty: 60 0RF folic acid 1 mg tablet 1 mg PO DAILY Qty: 30 0RF Continued gabapentin 600 mg tablet 600 mg PO TID tizanidine 4 mg tablet 8 mg PO TID levothyroxine 150 mcg tablet 150 mcg PO DAILY lorazepam 1 mg tablet 1 mg PO TID PRN (Reason: Alcohol/drug Withdrawal) topiramate 50 mg tablet 50 mg PO BID duloxetine 60 mg capsule,delayed release(DR/EC) 120 mg PO DAILY lactulose 10 gram/15 mL solution 30 ml PO BID oxycodone 10 mg tablet 10 mg PO QID PRN (Reason: Pain) Dexilant 60 mg capsule,biphase delayed releas 60 mg PO DAILY primidone 50 mg Tablet 100 mg PO BEDTIME Discontinued amlodipine 5 mg tablet 5 mg PO DAILY potassium chloride 20 mEq tablet,ER particles/crystals 20 meq PO DAILY Rx Instructions: for 7 days (rx filled 07/09/22) Discharge Orders: Discharge Order (Routine); Ordered 07/20/22 Ordered By: Mita Astudillo Referrals: [facility] [Outside] Maggie Jacobson DO [Primary Care Provider] - Discharge Attestations Time Spent in Discharge Care*: less than 30 min Quality Metrics Clinical Quality Measures [ No reported AMI, CVA or VTE this stay] Coding Level of Care Code Acute [facility] note Diagnoses Alcoholism F10.20 Degenerative disk disease Chronic narcotic use F11.90 GERD (gastroesophageal reflux disease) K21.9 Alcoholic cirrhosis K70.30 Macrocytic anemia D53.9 Acute encephalopathy G93.40 Alcohol withdrawal F10.931 Complication of substance-induced condition: with delirium Wernicke-Korsakoff syndrome (alcoholic) F10.96 Recurrent falls R29.6
[2022-07-20 10:51] LABS: Glucose Point of Care 120 mg/dL (70-110)
[2022-07-20 11:37] VITALS: BP 104/67; PULSE 80; RESP 15; TEMP 36.6; O2SAT 97
[2022-07-20 11:51] LABS: SARS Covid-2 Antigen negative (Negative)
--- NOTE | 2022-07-20 13:48 | PC.SOCIAL ---
IMM Updated Pg 2 of IMM updated and reviewed w/ patient. Copy provided and Copy dated, initialed and placed in chart.
--- NOTE | 2022-07-20 14:26 | PC.NURSE ---
1200 report called to [facility] to [facility]. IV removed patient tolerated well
--- NOTE | 2022-07-20 14:27 | PC.NURSE ---
[id number] Craft catheater removed patient pat well
--- NOTE | 2022-07-20 14:30 | PC.NURSE ---
1406 patient dressed in patients clothes, and patient in wheelchair and taken to medicaid transport with 02 on per nasal cannula at 2 liters. patient home meds and belongings given to medicaid transport and patient. Patient in stable condition
[2022-07-20 14:36] VITALS: BP 104/67; PULSE 80; RESP 15; TEMP 36.6; O2SAT 97
== END 2022-07-20 14:05 | disposition skilled nursing facility (03) | DRG 896 ==
LOC: ER 14:35 → ICU 16:23 → MEDSURG 07-18 22:47 → ICU 07-25 13:47
PROVIDERS: Admitting Provider Hospitalist; Emergency Provider Family Medicine; PCP Family Medicine; Visit Provider Internal Medicine
DX: K70.31 Alcoholic cirrhosis of liver with ascites (principal); R60.0 Localized edema; D53.9 Nutritional anemia, unspecified; K21.9 Gastro-esophageal reflux disease without esophagitis; F11.90 Opioid use, unspecified, uncomplicated; F17.218 Nicotine dependence, cigarettes, with other nicotine-induced disorders; F10.20 Alcohol dependence, uncomplicated; R29.6 Repeated falls; K70.30 Alcoholic cirrhosis of liver without ascites; F10.26 Alcohol dependence with alcohol-induced persisting amnestic disorder; E43 Unspecified severe protein-calorie malnutrition; G93.41 Metabolic encephalopathy; L89.213 Pressure ulcer of right hip, stage 3; M62.82 Rhabdomyolysis; F10.231 Alcohol dependence with withdrawal delirium; Y90.0 Blood alcohol level of less than 20 mg/100 ml; I10 Essential (primary) hypertension; E03.9 Hypothyroidism, unspecified; G89.29 Other chronic pain; F17.298 Nicotine dependence, other tobacco product, with other nicotine-induced disorders; D69.6 Thrombocytopenia, unspecified; E86.0 Dehydration; G62.1 Alcoholic polyneuropathy; S51.811A Laceration without foreign body of right forearm, initial encounter; W54.0XXA Bitten by dog, initial encounter; R23.8 Other skin changes; Z66 Do not resuscitate; Z98.1 Arthrodesis status; Z79.891 Long term (current) use of opiate analgesic
CPT/HCPCS: 36415; 36416; 36600; 70450; 71045; 80048; 80051; 80053; 80306; 80307; 81001; 82140; 82330; 82550; 82607; 82746; 82805; 82962; 83540; 83550; 83605; 83690; 83735; 84100; 84443; 85025; 85610; 85730; 87040; 87077; 87086; 87186; 87426; 93005; 93971; 96365; 96372; 97110; 97161; 97167; 97530; 99285; C9113; G0378; J0696; J1644; J2310; J3411; J3475; J3480; J3490; J7030